=== PATIENT | female | born 1965 | race Caucasian/White ===

== ENCOUNTER 2016-03-11 21:11 | Emergency (ER) | payer MEDICARE ==
[2016-03-11 21:13] VITALS: BMI 32.3
[2016-03-11] MEDS ORDERED: ACETAMINOPHEN 325 MG/TAB TABLET PO ONE (21:41)
[2016-03-11] MEDS ORDERED: ONDANSETRON HCL 4 MG/2 ML VIAL IV ONE (22:00)
[2016-03-11] MEDS ORDERED: NS 1,000 ML IV ONE (22:00)
--- NOTE | 2016-03-11 22:02 | EDPRACDOC ---
- General Information Chief Complaint: Flu-Like Symptoms Stated Complaint: COLD SHAKES CP TROUBLE BREATHING FEVER ABSCESS Time Seen by Provider: 03/11/16 21:52 Information Source: Patient Home Medications: Home Medications Atorvastatin Calcium [Lipitor] 10 mg PO QHS 01/26/16 Cholecalciferol (Vitamin D3) [Vitamin D3] 1,000 unit PO DAILY 01/26/16 Cyanocobalamin (Vitamin B-12) [Vitamin B-12] 1,000 mcg PO DAILY 01/26/16 Fluvoxamine Maleate 300 mg PO QHS 01/26/16 Lamotrigine [Lamictal Xr] 200 mg PO DAILY 01/26/16 Lorazepam [Ativan] 1 mg PO Q8H PRN 01/26/16 Multivitamin W/Iron, Minerals [[facility]] 1 tab PO DAILY Ondansetron [Zofran Odt] 4 mg PO TID PRN #10 tab.rapdis 01/26/16 Oxycodone Immediate Release [Oxy-Ir] 5 mg PO Q6H PRN #15 tab 01/26/16 Pantoprazole Sodium [Protonix] 40 mg PO BID 01/26/16 Quetiapine Fumarate Ext Rel [Seroquel Xr] 100 mg PO QHS 01/26/16 Azithromyacin Unknown Dose 0 mg PO DAILY 02/01/16 PEG-Electrolytes (Miralax) [Miralax] 17 gm PO DAILY #30 each 02/01/16 Promethazine [Phenergan] 25 mg PO Q8H PRN #15 tab 02/01/16 Albuterol Sulfate [Ventolin Hfa] 1 - 2 puff INH Q4H PRN #1 each 03/11/16 Levofloxacin [Levaquin] 750 mg PO DAILY #10 tab 03/11/16 Ondansetron HCl [Zofran] 4 mg PO Q6H PRN #15 tab 03/11/16 Allergies/Adverse Reactions: Allergies Allergy/AdvReac Type Severity Reaction Status Date / Time adhesive tape Allergy See Verified 03/11/16 21:33 Comments carbamazepine [From Equetro] Allergy See Verified 03/11/16 21:33 Comments duloxetine [From Cymbalta] Allergy See Verified 03/11/16 21:33 Comments eszopiclone [From Lunesta] Allergy See Verified 03/11/16 21:33 Comments metoclopramide [From Reglan] Allergy Anxiety Verified 03/11/16 21:33 paroxetine [From Paxil] Allergy See Verified 03/11/16 21:33 Comments suture Allergy See Verified 03/11/16 21:33 Comments - History of Present Illness Onset: 1800 HPI: PATIENT HAS HAD A COUGH, CONGESTION, FEVER, AND SOB WITH NAUSEA AND VOMITING X1 SINCE THIS AM. Treated Infection: None Max Temperature: 103 F Improves With: Reports: Tylenol Symptoms: Reports: Cough, Fever, Nasal Symptoms, SOB, Nausea, Vomiting ED Past Medical History - History Reviewed Yes Nurses notes reviewed and agree except as marked Travel Outside of [place] in the Last 3 Months?: No - Patient Medical History Neurological History: Reports: Seizures Cardiac History: Reports: Hypertension, Hypercholesterolemia GI/ History: Reports: Gastroesophageal Reflux Psychological History: Reports: Depression, Anxiety Surgical History: Reports: Other (MULTIPLE ABDOMINAL SURGERIES). Denies: Hysterectomy - Social Medical History Smoking Status: Never smoker ETOH: None Substance Abuse: None Lives With: Family Lives In: Home EDM Review of Systems - Review of Systems ROS Negative Except as Marked: Yes All systems reviewed and were negative except as marked Constitutional: Fever, Fatigue. negative: Chills, Loss of Appetite, Weakness Eyes: No Symptoms Reported. negative: Redness, Blurred Vision, Double Vision, Discharge, Pain, Light Sensitive, Photophobia Ears: No Symptoms Reported. negative: Pain, Hearing Loss, Drainage, Ear Pulling Throat: No Symptoms Reported. negative: Pain, Swelling Nose: No Symptoms Reported. negative: Congestion, Bleeding, Discharge, Injection, Swelling, Deformity, Ecchymosis, Tender, Abrasion, Laceration Mouth: No Symptoms Reported. negative: Pain, Drooling Respiratory: Cough, Shortness of Breath. negative: Barky Cough, Brassy Cough, Hemoptysis, Wheezing Cardiovascular: No Symptoms Reported. negative: Chest Pain, Palpitations, Syncope, Edema, Orthopnea, PND, Skin Mottling, Cyanosis Gastrointestinal: Nausea, Vomiting. negative: Constipation, Diarrhea, Formula Intolerance, Melena, Pain Genitourinary: No Symptoms Reported. negative: Dysuria, Hematuria, Frequency, Discharge, Bleeding, Testicular Pain, Neurological: No Symptoms Reported. negative: Headache, Dizziness, Seizure, Numbness, Weakness, Speech Difficulty, Gait Difficulty Musculoskeletal: No Symptoms Reported. negative: Neck, Chestwall, Ribs, Back, Shoulder, Arm, Elbow, Forearm, Wrist, Hand, Pelvis, Hip, Femur, Knee, Leg, Ankle , Foot Integumentary: No Symptoms Reported. negative: Itching, Rash, Bruising, Wound Allergic/Immunologic: No Symptoms Reported. negative: Hives, Itching Hematologic: No Symptoms Reported. negative: Lymphadenopathy, Easy Bruising, Easy Bleeding Endocrine: No Symptoms Reported. negative: Weight Gain, Weight Loss Psychiatric: No Symptoms Reported. negative: Anxiety, Depression, Hallucinations, Insomnia, Suicidal - Physical Exam Constitutional: Alert (Awake), No apparent distress Oriented to: Time, Person, Place Last recorded Vital Signs: Last Vital Signs Temp 101.7 F H 03/11/16 21:26 Pulse 109 03/11/16 21:50 Resp 18 03/11/16 21:50 BP 142/67 03/11/16 21:50 Pulse Ox 92 03/11/16 21:50 Oxygen Pulse Oxygen Saturation 92 O2 Device Room Air Oxygen Flow Rate Fraction of Inspired Oxygen ( FIO2) - HEENT Head: Normal ( normocephalic) Eye Exam: Normal (PERRL, EOMI, Sclera white) Oropharynx: Normal (Pharynx:Moist without exudate,Gums-no swelling) Tympanic Membrane: Normal ENT EAC: Normal TMJ: Normal Nose: No Symptoms Reported (septum midline) Neck: Normal (FROM, trachea at midline) - Respiratory/Cardiovascular Respiratory: Rhonchi Cardiovascular: Tachycardia - GI Auscultation: Normal (NABS) Palpation: Normal (Soft,No rebound or guarding, non distended) Tenderness: Non tender Pro's Sign: Negative - Musculoskeletal Back: Normal (Non-Tender) Extremities: Normal (Normal tone, Pulses 2+ No cyanosis or edema, FROM) - Integumentary Skin: Normal, Warm, Dry Lymphatics: Normal (no adenopathy) - Neurologic Memory Impaired: Normal Motor Function: Normal (Normal tone, Pulses 2+ No cyanosis or edema, FROM) Cranial Nerve: Normal (CN II-X11 intact sensation, strength 5/5) Cerebellar: Normal Mood Description: Normal Perception: Normal - Results 03/11/16 22:30 03/11/16 22:30 - EKG EKG #1 EKG Time: 21:25 -: Yes EKG interpreted by me Rate: bpm: 119 [place]: Normal Rhythm: ST Block: None Hypertrophy: None ST: Normal Decision Time to Discharge: 23:21 - Departure Yes I personally saw and evaluated the patient. Disposition: Home Condition: Good Final Diagnosis: URI (upper respiratory infection) Qualifiers: URI type: unspecified URI Qualified Code(s): J06.9 - Acute upper respiratory infection, unspecified Instructions: Upper Respiratory Infection (ED) Education/Counseling Given To: Patient Education/Counseling Given Regarding: Diagnosis, Treatment, Prognosis, Follow Up Referrals: Oswaldo Harris PA [Primary Care Provider] - One Week Prescriptions: Albuterol Sulfate [Ventolin Hfa] 1 - 2 puff INH Q4H PRN #1 each PRN Reason: SHORTNESS OF BREATH Levofloxacin [Levaquin] 750 mg PO DAILY #10 tab Ondansetron HCl [Zofran] 4 mg PO Q6H PRN #15 tab PRN Reason: Nausea/Vomiting
[2016-03-11 22:21] LABS: LEUKOCYTES/URINE TRACE (NEGATIVE); NITRITE/URINE NEG (NEGATIVE); URINE OCCULT BLOOD NEG (NEG/TRACE)
[2016-03-11 22:41] LABS: MPV 8.2 fL (7.4-10.4)
[2016-03-11 22:50] LABS: BLOOD UREA NITROGEN 21 MG/DL (7-17); CALCIUM 9.3 MG/DL (8.4-10.2); CALCULATED OSMOLALITY 270 MOs/Kg (270-290); CHLORIDE 102 mEq/L (98-107); GLUCOSE 113 MG/DL (70-99); SODIUM LEVEL 138 mEq/L (137-146)
--- NOTE | 2016-03-11 23:14 | DIRPT ---
CLINICAL DATA: 50-year-old female with fever EXAM: CHEST 2 VIEW COMPARISON: Chest radiograph dated 02/01/2016 FINDINGS: The heart size and mediastinal contours are within normal limits. Both lungs are clear. The visualized skeletal structures are unremarkable. IMPRESSION: No active cardiopulmonary disease. Electronically Signed By: Mathieu Kwan M.D. On: 03/11/2016 23:12
[2016-03-11] MEDS ORDERED: LEVOFLOXACIN 750 MG TAB PO ONE (23:18)
[2016-03-11 23:35] VITALS: BP 106/54; PULSE 94; TEMP 98.7
[2016-03-12 00:07] LABS: SEG NEUTROPHIL 93 % (45-76)
== END 2016-03-11 23:28 | disposition home or self-care (01) ==
LOC: ED 21:11
DX: J06.9 Acute upper respiratory infection, unspecified (principal)
CPT/HCPCS: 36415; 71020; 80048; 81001; 81025; 85007; 85027; 87804; 93005; 96361; 96374; 99283; A9270; J2405; J3490